=== PATIENT | female | born 1970 | race Caucasian/White ===

== ENCOUNTER 2024-05-30 16:53 | Emergency (ER) | payer BC, SELFPAY ==
[2024-05-30 16:54] VITALS: BP 144/77
[2024-05-30 17:01] LABS: Glucose - Point of Care 176 mg/dl (70-99)
[2024-05-30 17:07] LABS: % Basophils 0.7 % (0-2); % Immature Granulocytes 0.5 % (0-0.5); % Lymphocytes 39.7 % (20.5-51.1); % Monocytes 8.8 % (1.7-9.3); % Neutrophils 49.3 % (42.2-75.2); Absolute Lymphocytes 1.6 10^3/uL (1.2-3.4); Absolute Monocytes 0.4 10^3/uL (0.1-0.6); Hematocrit 34.4 % (37.0-47.0); Hemoglobin 12.4 g/dL (12.0-16.0); Mean Corpuscular Hgb 29.5 pg (27.0-31.0); Mean Corpuscular Volume 81.9 fL (81.0-99.0); Mean Platelet Volume 10.3 fL (7.4-10.4); Nucleated Red Blood Cells % 0 %; Platelet Count 205 10^3/uL (130-400); Red Cell Dist. Width 12.3 % (11.5-14.5); White Blood Cell Count 4.1 10^3/uL (4.8-10.8)
[2024-05-30 17:34] LABS: ALT (SGPT) 17 U/L (0-35); AST (SGOT) 26 U/L (14-36); Albumin 4.1 g/dl (3.5-5.0); Alkaline Phosphatase 45 U/L (38-126); Blood Urea Nitrogen 17 mg/dl (7-17); Calcium 9.4 mg/dl (8.4-10.2); Carbon Dioxide 24 mmol/L (22-30); Chloride 102 mmol/L (98-107); Glucose 264 mg/dl (70-99); Potassium 3.6 mmol/L (3.5-5.1); Sodium 133 mmol/L (135-145); Total Bilirubin 1.6 mg/dl (0.2-1.3); Total Protein 6.1 g/dl (6.3-8.2); eGFR > 60.00
[2024-05-30 18:00] VITALS: BP 113/68
--- NOTE | 2024-05-30 18:41 | ED.GENMED ---
History of Present Illness
General
Chief Complaint: Dizziness
Source: patient
Exam Limitations: none
Time Seen by Provider: 05/30/24 17:12
Nursing documentation reviewed up to this point in time: agreed with
History of Present Illness
History of Present Illness:
Patient presents to ED secondary to persistent dizziness with difficulty walking since waking up this morning. Patient has had intermittent episodes of dizziness over the past 1 week, which resolved spontaneously. Denies headache. Denies blurred
vision. Denies loss of sensation or weakness. Denies difficulty with speech. Denies recent illness. Denies recent change in medications or diet. Patient's daily medication includes Prozac, which she has been taking for a long period of time.
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
Review of Systems
Review of Systems
Allergies reviewed?: Yes
All Other Systems: ROS reviewed and negative except as documented in HPI and ROS
Constitutional: Reports no symptoms
EENT: Reports no symptoms
Respiratory: Reports no symptoms
Cardiac: Reports no symptoms
ABD/GI: Reports no symptoms
: Reports no symptoms
Musculoskeletal: Reports no symptoms
Skin: Reports no symptoms
Neurological: Reports dizzy
Phy Exam
Physical Exam
Physical Exam:
Physical Exam
General: mild distress, not acutely ill. afebrile
Head: nc/at. eomi
Neck: supple. no meningeal signs.
Heart: s1/s2 regular rate and rhythm, no murmur. equal radial pulses.
Lungs: no acute respiratory distress. clear bilaterally
Abdomen: normal bowel sounds. not tender.
Neuro: alert and oriented. no focal neurological deficits. normal speech
Skin: no rash
Psychiatric: well kept. interactive and cooperative
Extremities: no edema. no calf tenderness.
Course
Orders/Labs/Results
Orders:
Orders
05/30/24 16:58
EKG [Electrocardiogram (*1)] Urgent
Reason for Study: Vertigo / Dizzy
EKG- Treatment ONCE
05/30/24 17:00
Complete Blood Count/With Diff Urgent
Comprehensive Metabolic Panel Urgent
Magnesium Urgent
Comment: ADD ON
TSH Reflex To Free T4 Urgent
Comment: ADD ON
05/30/24 18:25
Add On- LAB Urgent
Tests Added?: magnesium, TSH to reflex Free T4
CT Head W/o Iv Contrast Urgent
Comment:
Reason For Exam: dizziness with ataxia
Orthostatic VS- Treatment ONCE
05/30/24 18:26
0.9% Sodium Chloride 1000 ml [Nss] 1,000 ml IV BOLUS
05/30/24 18:55
Lyme Progressive Urgent
Troponin I Urgent
05/30/24 20:04
Urinalysis Reflex To Culture Urgent
Date Specimen was Collected: 05/30/24
Time Specimen was Collected: 19:17
Urine Microscopic Reflex Cult Urgent
Abnormal Lab Results
05/30/24 05/30/24 05/30/24
16:56 17:00 20:04
WBC 4.1 L 10^3/uL
(4.8-10.8)
Hct 34.4 L %
(37.0-47.0)
Sodium 133 L mmol/L
(135-145)
Glucose 264 H mg/dl
(70-99)
Total Bilirubin 1.6 H mg/dl
(0.2-1.3)
Total Protein 6.1 L g/dl
(6.3-8.2)
Ur Occult Blood Reflex 1+ A
(Negative)
Urine RBC 11-15 A /HPF
(0-2)
Urine Bacteria (Reflex) Few A
(Negative)
Urine Glucose 1+ A
(Negative)
POC Glucose 176 H mg/dl
(70-99)
05/30/24 17:00
05/30/24 17:00
Vital Signs
Initial and Last Documented VS:
Initial Vital Signs
Temp Pulse Resp BP Pulse Ox
97.7 F 86 16 144/77 100
05/30/24 16:54 05/30/24 16:54 05/30/24 16:54 05/30/24 16:54 05/30/24 16:54
Last Documented Vital Signs
Temp Pulse Resp BP Pulse Ox
97.7 F 66 11 116/63 98
05/30/24 16:54 05/30/24 20:45 05/30/24 20:45 05/30/24 20:03 05/30/24 20:45
MDM/Problems Addressed
MDM/Problems Addressed:
Patient with an unremarkable workup in ED, including blood work, EKG and CT head.
Patient reports improvement in symptoms after IV hydration. Patient is able to ambulate independently with steady gait prior to discharge. History and exam consistent with likely nonspecific dizziness, likely triggered by dehydration. Patient
will be discharged home in stable condition, to the care of her spouse, with recommendation to be careful with change in position along with increased fluid intake. Advised to return to ED with worsening symptoms.
*Critical Care Note
Total Time (30-74mins, 75-104mins- exclusive of procedures): Not Applicable
ED Attending Note
-
Portions of this chart may have been created with voice recognition software.� Occasional wrong word or��sound alike� substitutions may have occurred due to the inherent limitations of voice recognition software.
Discharge Plan
Departure
Patient Disposition: Home (Routine Discharge)
Date of Disposition: 05/30/24
Time of Disposition: 21:01
Patient with high blood pressure during this ER visit?: Yes
Discharge Problem:
Dizziness
Instructions: Dizziness
Prescriptions:
No Action
acetaminophen [Tylenol Extra Strength] 500 MG tablet
1,000 mg PO Q6HPRN PRN (Reason: pain)
fluoxetine 10 MG capsule
PO .Q14 DAYS
cranberry jaao-C-viumyupm coag [Kdotwmsua-Yqrkxnpby-Aamrbnv C] 1 EACH tablet
1 ea PO DAILY
Referrals:
Gabriele Villarreal MD [Family Provider] -
Activity Restrictions/Additional Instructions:
As discussed, please continue to stay hydrated at home, along with PCP follow-up as an outpatient. Please return to ED with worsening symptoms.
Interventions
Interventions:
*Risk Screen - Suicide Last Done: 05/30/24 16:54
*General Assessment Last Done: 05/30/24 16:54
*Neglect/Abuse Screening Last Done: 05/30/24 16:54
ED- Fall Risk Assessment Last Done: 05/30/24 21:13
*ED COVID-19 Vaccine History Last Done: 05/30/24 21:13
*Nursing Disposition Last Done: 05/30/24 21:13
ED- Neurological Assessment Last Done: 05/30/24 17:10
ED- Cardiac Assessment Last Done: 05/30/24 17:10
ED Swallowing Screen Last Done: 05/30/24 17:10
Discharge Date and Time
Discharge Date/Time: 05/30/24 21:13
Print Language: GREEK
[2024-05-30] MEDS: NSS 1000 IV (18:56)
[2024-05-30 18:57] VITALS: BP 110/70; BP 124/79; BP 128/75; PULSE 60; PULSE 71; PULSE 76
[2024-05-30 19:00] VITALS: BP 110/70; BP 124/79
[2024-05-30 19:23] LABS: Magnesium 1.7 mg/dl (1.6-2.3)
[2024-05-30 19:30] LABS: Troponin I < 0.012 ng/ml
[2024-05-30 19:53] LABS: TSH Reflex To Free T4 1.49 uIU/ml (0.47-4.68)
[2024-05-30 20:03] VITALS: BP 116/63
[2024-05-30 20:19] LABS: Urine Albumin Negative (Neg - Trace); Urine Bilirubin Negative (Negative); Urine Character Clear (Clear); Urine Color Yellow; Urine Glucose 1+ (Negative); Urine Ketone Negative (Negative); Urine Leukocyte Negative (Negative); Urine Nitrite Negative (Negative); Urine Occult Blood 1+ (Negative); Urine Urobilinogen Negative (Neg - 1+)
[2024-05-30 20:30] LABS: Urine Bacteria Few (Negative); Urine White Cell 0-2 /HPF (0-5)
[2024-06-01 11:36] LABS: Lyme Antibody Screen, EIA Negative (Negative)
== END 2024-05-30 21:13 | disposition home or self-care (01) ==
LOC: EMR 16:53
PROVIDERS: Surgery; EMERGENCY PHYSICIAN Emergency Medicine; FAMILY PHYSICIAN Family Medicine
DX: R42 Dizziness and giddiness (principal); Z79.899 Other long term (current) drug therapy
CPT/HCPCS: 99284; 96360; 70450; 80053; 81003; 81015; 82962; 83735; 84443; 84484; 85025; 86618; 93005

== ENCOUNTER → 2024-11-20 15:48 | Outpatient (REF) | payer BC, SELFPAY | LOC: HWWDC 15:48 | PROVIDERS: FAMILY PHYSICIAN Family Medicine | DX: Z12.31 Encounter for screening mammogram for malignant neoplasm of breast (principal) | CPT/HCPCS: 77063; 77067 ==